=== PATIENT | male | born 1935 | race Caucasian/White ===

== ENCOUNTER 2016-05-07 17:08 | Inpatient (IN) | payer OTHER, MEDICARE ==
[~2016-05-07] VITALS: Ht 182.9 cm; Wt 76.1 kg
[2016-05-07 17:23] LABS: EOSINOPHIL (%) 3.9 % (0-5); EOSINOPHIL COUNT 0.2 K/uL (0-0.3); HEMATOCRIT 39.8 % (38.0-50.0); IMMATURE GRANULOCYTE COUNT 0.1 K/uL; INSTRUMENT ABS NEUTROPHIL CT 4.1 K/uL; LYMPHOCYTE COUNT 1.1 K/uL (1.0-2.8); MCH 30.9 PG (29.0-34.0); MCHC 32.4 G/DL (30.0-36.0); MCV 95.2 FL (86-99); MEAN PLAT.VOLUME 9.3 uM^3 (9.0-12.4); MONOCYTE (%) 10.5 % (3-12); MONOCYTE COUNT 0.6 K/uL (0-0.8); NEUTROPHIL (%) 66.7 % (45-76); NEUTROPHIL COUNT 4.1 K/uL (1.8-6.4); PLATELET COUNT 154 K/uL (156-360); RBC DIS.WIDTH-CV 13.1 % (11.8-14.6); RBC DIS.WIDTH-SD 45.4 % (39-53); RED BLOOD COUNT 4.18 M/uL (4.00-5.50); WHITE BLOOD COUNT 6.1 K/uL (4.1-10.2)
[2016-05-07 17:25] LABS: CREATININE 1.6 mg/dL (0.6-1.3); POTASSIUM 5.1 mEq/L (3.7-5.4)
[2016-05-07 17:31] LABS: AMYLASE 78 IU/L (1-118); CHLORIDE 103 mEq/L (99-109); POTASSIUM 5.4 mEq/L (3.7-5.4); SODIUM 139 mEq/L (136-147)
[2016-05-07 17:32] LABS: INTER. NORMALIZED RATIO 1.2
[2016-05-07 17:33] LABS: GLUCOSE 128 mg/dL (70-99)
[2016-05-07 17:34] LABS: ANION GAP 19 MEQ/L (2-14)
[2016-05-07 17:36] LABS: SERUM ETHYL ALCOHOL < 10 mg/dL
[2016-05-07 17:38] LABS: UREA NITROGEN (BUN) 26 mg/dL (9-23)
[2016-05-07 17:40] LABS: LIPASE 12 U/L (1.0-51.0)
[2016-05-07 17:44] LABS: TROP-I INTERPRETATION NEGATIVE; TROPONIN-I < 0.01 ng/mL (0.0-0.30)
[2016-05-07 17:46] LABS: GFR ESTIMATE (CALCULATED) 39 mL/min/
[2016-05-07 18:22] LABS: ADD MIUA? NO; BILIRUBIN NEGATIVE; BLOOD NEGATIVE; COLOR YELLOW ((YELLOW)); GLUCOSE (STRIP) NEGATIVE; KETONES NEGATIVE; LEUKOCYTES NEGATIVE; NITRITE NEGATIVE; PROTEIN (STRIP) NEGATIVE; SPECIFIC GRAVITY 1.011 (1.000-1.030); UCUL ADDED? NO
[2016-05-07 18:37] LABS: AMPHETAMINE NEGATIVE (500 ng/mL); BARBITURATES NEGATIVE (200 ng/mL); BENZODIAZEPINES NEGATIVE (150 ng/mL); COCAINE NEGATIVE (150 ng/mL); INTERNAL CONTROLS VALID? YES; METHADONE NEGATIVE (200 ng/mL); METHAMPHETAMINE NEGATIVE (500 ng/mL); OPIATES (MORPHINE) NEGATIVE (100 ng/mL); OXYCODONE NEGATIVE (100 ng/mL); PHENCYCLIDINE NEGATIVE (25 ng/mL); PROPOXYPHENE NEGATIVE (300 ng/mL); THC CANNABINOIDS NEGATIVE (50 ng/mL); TRICYCLIC ANTIDEPRESSANTS NEGATIVE (300 ng/mL)
[2016-05-07] MEDS ORDERED: LANTUS 10100 UNITS/ SC (20:26)
[2016-05-07] MEDS ORDERED: AMLODIPINE BESYL5 MG PO (20:27)
[2016-05-07] MEDS ORDERED: ALLOPURINOL100 MG PO (20:27)
[2016-05-07] MEDS ORDERED: LOSARTAN POTAS100 MG PO (20:27)
[2016-05-07] MEDS ORDERED: FUROSEMIDE20 MG PO (20:27)
[2016-05-07] MEDS ORDERED: ZOLOFT25 MG PO (20:28)
[2016-05-07] MEDS ORDERED: KLOR-CON 1010 ME1 PO (20:28)
[2016-05-07] MEDS ORDERED: SERTRALINE HCL50 MG PO (20:28)
[2016-05-07] MEDS ORDERED: AMANTADINE100 MG PO (20:29)
[2016-05-07] MEDS ORDERED: VITAMIN D31000 UNIT PO (20:29)
[2016-05-07] MEDS ORDERED: TAMSULOSIN HCL0.4 MG PO (20:29)
[2016-05-07] MEDS ORDERED: ATORVASTATIN CA10 MG PO (20:29)
[2016-05-07] MEDS ORDERED: MIRALAX255 GM PO (20:30)
[2016-05-07 23:30] VITALS: BP 145/76
[2016-05-07 23:42] LABS: POINT-OF-CARE METER ID UU14174216
[2016-05-08 00:18] VITALS: BP 142/76
[2016-05-08 05:00] VITALS: BP 150/70
[2016-05-08 07:03] LABS: HEMATOCRIT 33.4 % (38.0-50.0); MCHC 33.5 G/DL (30.0-36.0); MCV 92.5 FL (86-99); MEAN PLAT.VOLUME 9.7 uM^3 (9.0-12.4); PLATELET COUNT 125 K/uL (156-360); RBC DIS.WIDTH-SD 44.4 % (39-53); RED BLOOD COUNT 3.61 M/uL (4.00-5.50); WHITE BLOOD COUNT 4.8 K/uL (4.1-10.2)
[2016-05-08 07:42] VITALS: BP 163/73
[2016-05-08 08:13] LABS: ALKALINE PHOSPHATASE 103 IU/L (3-129); ANION GAP 7 MEQ/L (2-14); CHLORIDE 106 MEQ/L (99-109); SAMPLE HEMOLYSIS CHECK 0; SAMPLE ICTERIC CHECK 0; SAMPLE LIPEMIA CHECK 0; SODIUM 141 MEQ/L (136-147); TOTAL BILIRUBIN 1.4 MG/DL (0.0-1.0); UREA NITROGEN (BUN) 17 mg/dL (9-23)
[2016-05-08 08:16] LABS: GFR ESTIMATE (CALCULATED) > 59 mL/min/; GLUCOSE 77 mg/dL (70-99); POTASSIUM 3.6 MEQ/L (3.7-5.4)
[2016-05-08 12:51] VITALS: BP 184/78
[2016-05-08 20:27] VITALS: BP 176/81
[2016-05-08 23:13] LABS: POINT-OF-CARE METER ID UU14174216
[2016-05-09 00:21] VITALS: BP 154/70
[2016-05-09 05:15] VITALS: BP 161/72
[2016-05-09 06:12] LABS: POINT-OF-CARE METER ID UU13113781
[2016-05-09 06:56] LABS: EOSINOPHIL (%) 3.2 % (0-5); EOSINOPHIL COUNT 0.2 K/uL (0-0.3); HEMATOCRIT 38.4 % (38.0-50.0); IMMATURE GRANULOCYTE (%) 0.5 % (0.0-0.7); INSTRUMENT ABS NEUTROPHIL CT 4.4 K/uL; LYMPHOCYTE COUNT 0.7 K/uL (1.0-2.8); MCH 30.6 PG (29.0-34.0); MCHC 33.6 G/DL (30.0-36.0); MEAN PLAT.VOLUME 9.7 uM^3 (9.0-12.4); MONOCYTE (%) 9.1 % (3-12); MONOCYTE COUNT 0.5 K/uL (0-0.8); NEUTROPHIL (%) 74.7 % (45-76); NEUTROPHIL COUNT 4.4 K/uL (1.8-6.4); PLATELET COUNT 140 K/uL (156-360); RBC DIS.WIDTH-CV 12.8 % (11.8-14.6); RBC DIS.WIDTH-SD 42.6 % (39-53); RED BLOOD COUNT 4.22 M/uL (4.00-5.50); WHITE BLOOD COUNT 5.9 K/uL (4.1-10.2)
[2016-05-09 07:12] LABS: ANION GAP 10 MEQ/L (2-14); CHLORIDE 103 MEQ/L (99-109); GFR ESTIMATE (CALCULATED) > 59 mL/min/; GLUCOSE 77 mg/dL (70-99); SAMPLE HEMOLYSIS CHECK 0; SAMPLE ICTERIC CHECK 0; SAMPLE LIPEMIA CHECK 0; SODIUM 139 MEQ/L (136-147); UREA NITROGEN (BUN) 18 mg/dL (9-23)
[2016-05-09 08:15] VITALS: BP 184/84
[2016-05-09 12:45] VITALS: BP 148/67
[2016-05-09 16:09] LABS: POINT-OF-CARE METER ID UU13113781
[2016-05-09 16:25] VITALS: BP 144/67
[2016-05-09 19:50] VITALS: BP 166/86
[2016-05-09 21:15] LABS: POINT-OF-CARE METER ID UU13113781
[2016-05-10 00:07] VITALS: BP 120/57
[2016-05-10 04:30] VITALS: BP 136/85
[2016-05-10 05:54] LABS: EOSINOPHIL (%) 3.6 % (0-5); EOSINOPHIL COUNT 0.2 K/uL (0-0.3); HEMATOCRIT 36.2 % (38.0-50.0); IMMATURE GRANULOCYTE (%) 0.4 % (0.0-0.7); INSTRUMENT ABS NEUTROPHIL CT 3.8 K/uL; LYMPHOCYTE COUNT 0.7 K/uL (1.0-2.8); MCH 30.6 PG (29.0-34.0); MEAN PLAT.VOLUME 9.6 uM^3 (9.0-12.4); MONOCYTE COUNT 0.6 K/uL (0-0.8); NEUTROPHIL COUNT 3.8 K/uL (1.8-6.4); PLATELET COUNT 129 K/uL (156-360); RBC DIS.WIDTH-CV 12.8 % (11.8-14.6); RBC DIS.WIDTH-SD 42.5 % (39-53); RED BLOOD COUNT 4.02 M/uL (4.00-5.50); WHITE BLOOD COUNT 5.4 K/uL (4.1-10.2)
[2016-05-10 06:43] LABS: ANION GAP 11 MEQ/L (2-14); CHLORIDE 101 MEQ/L (99-109); GFR ESTIMATE (CALCULATED) > 59 mL/min/; SAMPLE HEMOLYSIS CHECK 0; SAMPLE ICTERIC CHECK 0; SAMPLE LIPEMIA CHECK 0; SODIUM 137 MEQ/L (136-147); UREA NITROGEN (BUN) 21 mg/dL (9-23)
[2016-05-10 06:48] LABS: GLUCOSE 107 mg/dL (70-99)
[2016-05-10 07:27] LABS: POINT-OF-CARE METER ID UU13113781
[2016-05-10 11:20] VITALS: BP 148/67
[2016-05-10 11:21] LABS: POINT-OF-CARE METER ID UU13113781
[2016-05-10 20:09] VITALS: BP 115/58
[2016-05-10 20:41] LABS: POINT-OF-CARE METER ID UU13113781
[2016-05-10 23:53] VITALS: BP 135/65
[2016-05-11] VITALS (7 sets, daily range): BP systolic 134–171; BP diastolic 65–83
[2016-05-11 06:24] LABS: MCH 31.1 PG (29.0-34.0); MCHC 34.5 G/DL (30.0-36.0); MCV 90.2 FL (86-99); MEAN PLAT.VOLUME 9.5 uM^3 (9.0-12.4); PLATELET COUNT 125 K/uL (156-360); RBC DIS.WIDTH-CV 12.7 % (11.8-14.6); RED BLOOD COUNT 3.66 M/uL (4.00-5.50); WHITE BLOOD COUNT 4.9 K/uL (4.1-10.2)
[2016-05-11 06:46] LABS: ANION GAP 9 MEQ/L (2-14); CHLORIDE 107 MEQ/L (99-109); GFR ESTIMATE (CALCULATED) > 59 mL/min/; GLUCOSE 112 mg/dL (70-99); POTASSIUM 4.1 MEQ/L (3.7-5.4); SAMPLE HEMOLYSIS CHECK 0; SAMPLE ICTERIC CHECK 0; SAMPLE LIPEMIA CHECK 0; SODIUM 141 MEQ/L (136-147); UREA NITROGEN (BUN) 21 mg/dL (9-23)
[2016-05-11 07:17] LABS: POINT-OF-CARE METER ID UU13113781
[2016-05-12 04:08] VITALS: BP 132/64
[2016-05-12 06:04] LABS: HEMATOCRIT 35.7 % (38.0-50.0); MCH 30.5 PG (29.0-34.0); MCHC 33.6 G/DL (30.0-36.0); MCV 90.6 FL (86-99); MEAN PLAT.VOLUME 9.7 uM^3 (9.0-12.4); PLATELET COUNT 131 K/uL (156-360); RBC DIS.WIDTH-CV 12.7 % (11.8-14.6); RBC DIS.WIDTH-SD 42.3 % (39-53); RED BLOOD COUNT 3.94 M/uL (4.00-5.50); WHITE BLOOD COUNT 4.7 K/uL (4.1-10.2)
[2016-05-12 06:23] LABS: ANION GAP 11 MEQ/L (2-14); CHLORIDE 107 MEQ/L (99-109); GFR ESTIMATE (CALCULATED) > 59 mL/min/; GLUCOSE 107 mg/dL (70-99); POTASSIUM 3.8 MEQ/L (3.7-5.4); SAMPLE HEMOLYSIS CHECK 0; SAMPLE ICTERIC CHECK 0; SAMPLE LIPEMIA CHECK 0; SODIUM 144 MEQ/L (136-147); UREA NITROGEN (BUN) 22 mg/dL (9-23)
[2016-05-12 07:53] VITALS: BP 139/67
[2016-05-12 12:03] VITALS: BP 142/88
[2016-05-12 17:00] VITALS: BP 148/83
[2016-05-12 20:10] VITALS: BP 143/78
[2016-05-13 00:18] VITALS: BP 135/75
[2016-05-13 04:22] VITALS: BP 151/81
[2016-05-13 05:52] LABS: HEMATOCRIT 38.5 % (38.0-50.0); MCH 30.2 PG (29.0-34.0); MCHC 33.8 G/DL (30.0-36.0); MCV 89.5 FL (86-99); MEAN PLAT.VOLUME 9.7 uM^3 (9.0-12.4); PLATELET COUNT 142 K/uL (156-360); RBC DIS.WIDTH-CV 12.6 % (11.8-14.6); RBC DIS.WIDTH-SD 41.2 % (39-53)
[2016-05-13 05:53] LABS: WHITE BLOOD COUNT 6.4 K/uL (4.1-10.2)
[2016-05-13 05:59] LABS: ANION GAP 11 MEQ/L (2-14); CHLORIDE 105 MEQ/L (99-109); GFR ESTIMATE (CALCULATED) > 59 mL/min/; GLUCOSE 124 mg/dL (70-99); POTASSIUM 4.1 MEQ/L (3.7-5.4); SAMPLE HEMOLYSIS CHECK 0; SAMPLE ICTERIC CHECK 0; SAMPLE LIPEMIA CHECK 0; SODIUM 142 MEQ/L (136-147); UREA NITROGEN (BUN) 20 mg/dL (9-23)
[2016-05-13 08:38] VITALS: BP 132/69
[2016-05-13 12:01] VITALS: BP 107/57
[2016-05-13 16:06] VITALS: BP 133/56
[2016-05-13 17:37] LABS: POINT-OF-CARE METER ID UU14149397
[2016-05-13 19:52] VITALS: BP 150/72
[2016-05-13 22:10] LABS: POINT-OF-CARE METER ID UU14149397
[2016-05-14 00:14] VITALS: BP 137/91
[2016-05-14 04:28] VITALS: BP 144/63
[2016-05-14 05:18] LABS: HEMATOCRIT 34.6 % (38.0-50.0); MCH 30.8 PG (29.0-34.0); MCHC 34.7 G/DL (30.0-36.0); MCV 88.7 FL (86-99); MEAN PLAT.VOLUME 9.7 uM^3 (9.0-12.4); PLATELET COUNT 144 K/uL (156-360); RBC DIS.WIDTH-CV 12.6 % (11.8-14.6); RBC DIS.WIDTH-SD 41.1 % (39-53)
[2016-05-14 05:40] LABS: ANION GAP 11 MEQ/L (2-14); CHLORIDE 110 MEQ/L (99-109); GFR ESTIMATE (CALCULATED) 56 mL/min/; GLUCOSE 120 mg/dL (70-99); SAMPLE HEMOLYSIS CHECK 0; SAMPLE ICTERIC CHECK 0; SAMPLE LIPEMIA CHECK 0; SODIUM 145 MEQ/L (136-147); UREA NITROGEN (BUN) 22 mg/dL (9-23)
[2016-05-14 07:50] VITALS: BP 124/58
[2016-05-14 15:02] VITALS: BP 175/92
[2016-05-14 16:24] LABS: POINT-OF-CARE METER ID UU14188577
[2016-05-14 22:45] VITALS: BP 162/84
[2016-05-15 05:32] LABS: HEMATOCRIT 35.8 % (38.0-50.0); MCH 30.8 PG (29.0-34.0); MCHC 34.4 G/DL (30.0-36.0); MCV 89.5 FL (86-99); MEAN PLAT.VOLUME 9.5 uM^3 (9.0-12.4); PLATELET COUNT 132 K/uL (156-360); RBC DIS.WIDTH-CV 12.6 % (11.8-14.6); RBC DIS.WIDTH-SD 41.4 % (39-53); WHITE BLOOD COUNT 6.1 K/uL (4.1-10.2)
[2016-05-15 05:58] LABS: ANION GAP 11 MEQ/L (2-14); CHLORIDE 110 MEQ/L (99-109); GFR ESTIMATE (CALCULATED) > 59 mL/min/; GLUCOSE 110 mg/dL (70-99); POTASSIUM 4.1 MEQ/L (3.7-5.4); SAMPLE HEMOLYSIS CHECK 0; SAMPLE ICTERIC CHECK 0; SAMPLE LIPEMIA CHECK 0; SODIUM 144 MEQ/L (136-147); UREA NITROGEN (BUN) 18 mg/dL (9-23)
[2016-05-15 08:04] VITALS: BP 137/60
[2016-05-15 11:21] LABS: POINT-OF-CARE METER ID UU14149397
[2016-05-15 15:50] VITALS: BP 172/79
[2016-05-15 16:36] LABS: POINT-OF-CARE METER ID UU14188577
[2016-05-15 20:25] VITALS: BP 178/88
[2016-05-15 21:56] LABS: POINT-OF-CARE METER ID UU14188577
[2016-05-15 23:26] VITALS: BP 180/80
[2016-05-16 04:10] VITALS: BP 160/73
[2016-05-16 06:12] LABS: HEMATOCRIT 39.2 % (38.0-50.0); MCH 30.2 PG (29.0-34.0); MCHC 33.7 G/DL (30.0-36.0); MCV 89.7 FL (86-99); MEAN PLAT.VOLUME 9.7 uM^3 (9.0-12.4); PLATELET COUNT 159 K/uL (156-360); RBC DIS.WIDTH-CV 12.7 % (11.8-14.6); RBC DIS.WIDTH-SD 42.1 % (39-53); RED BLOOD COUNT 4.37 M/uL (4.00-5.50); WHITE BLOOD COUNT 7.7 K/uL (4.1-10.2)
[2016-05-16 06:44] LABS: ANION GAP 12 MEQ/L (2-14); CHLORIDE 111 MEQ/L (99-109); GFR ESTIMATE (CALCULATED) > 59 mL/min/; GLUCOSE 85 mg/dL (70-99); SAMPLE HEMOLYSIS CHECK 0; SAMPLE ICTERIC CHECK 0; SAMPLE LIPEMIA CHECK 0; SODIUM 149 MEQ/L (136-147); UREA NITROGEN (BUN) 24 mg/dL (9-23)
[2016-05-16 06:46] LABS: POTASSIUM 5.1 MEQ/L (3.7-5.4)
[2016-05-16 08:19] VITALS: BP 169/79
[2016-05-16 12:02] LABS: POINT-OF-CARE METER ID UU14188577
[2016-05-16 12:24] VITALS: BP 146/95
[2016-05-16 16:19] VITALS: BP 125/59
[2016-05-16 17:04] LABS: POINT-OF-CARE METER ID UU14188577
[2016-05-16 22:17] VITALS: BP 122/61
[2016-05-17 01:01] VITALS: BP 142/79
[2016-05-17 04:40] VITALS: BP 146/63
[2016-05-17 05:43] LABS: HEMATOCRIT 35.3 % (38.0-50.0); MCH 30.2 PG (29.0-34.0); MCHC 34.3 G/DL (30.0-36.0); MEAN PLAT.VOLUME 9.7 uM^3 (9.0-12.4); PLATELET COUNT 127 K/uL (156-360); RBC DIS.WIDTH-CV 12.5 % (11.8-14.6); RBC DIS.WIDTH-SD 40.1 % (39-53); RED BLOOD COUNT 4.01 M/uL (4.00-5.50); WHITE BLOOD COUNT 5.4 K/uL (4.1-10.2)
[2016-05-17 06:05] LABS: ANION GAP 10 MEQ/L (2-14); CHLORIDE 110 MEQ/L (99-109); GFR ESTIMATE (CALCULATED) > 59 mL/min/; GLUCOSE 126 mg/dL (70-99); POTASSIUM 3.3 MEQ/L (3.7-5.4); SAMPLE HEMOLYSIS CHECK 0; SAMPLE ICTERIC CHECK 0; SAMPLE LIPEMIA CHECK 0; SODIUM 143 MEQ/L (136-147); UREA NITROGEN (BUN) 22 mg/dL (9-23)
[2016-05-17 11:46] LABS: POINT-OF-CARE METER ID UU14188577
[2016-05-17 13:09] VITALS: BP 160/78
[2016-05-17 16:30] VITALS: BP 132/62
[2016-05-17 16:45] VITALS: BP 186/86
[2016-05-17 17:15] LABS: POINT-OF-CARE METER ID UU14188577
[2016-05-17 22:15] LABS: POINT-OF-CARE METER ID UU14188577
[2016-05-18] VITALS (8 sets, daily range): BP systolic 106–171; BP diastolic 57–76
[2016-05-18 07:09] LABS: POINT-OF-CARE METER ID UU14188577
[2016-05-18 21:47] LABS: POINT-OF-CARE METER ID UU14188577
[2016-05-19 03:55] VITALS: BP 113/59
[2016-05-19 08:34] VITALS: BP 97/50
[2016-05-19 08:40] VITALS: BP 118/60
[2016-05-19 12:11] VITALS: BP 115/53
[2016-05-19 16:18] VITALS: BP 137/63
[2016-05-20 04:02] VITALS: BP 158/70
[2016-05-20 07:49] VITALS: BP 99/53
[2016-05-20 08:58] LABS: HEMATOCRIT 32.2 % (38.0-50.0); MCH 30.5 PG (29.0-34.0); MCHC 35.1 G/DL (30.0-36.0); MEAN PLAT.VOLUME 10.1 uM^3 (9.0-12.4); PLATELET COUNT 108 K/uL (156-360); RBC DIS.WIDTH-CV 12.7 % (11.8-14.6); RBC DIS.WIDTH-SD 40.1 % (39-53); WHITE BLOOD COUNT 5.6 K/uL (4.1-10.2)
[2016-05-20 09:36] LABS: ANION GAP 10 MEQ/L (2-14); CHLORIDE 107 MEQ/L (99-109); GFR ESTIMATE (CALCULATED) > 59 mL/min/; GLUCOSE 161 mg/dL (70-99); POTASSIUM 3.1 MEQ/L (3.7-5.4); SAMPLE HEMOLYSIS CHECK 0; SAMPLE ICTERIC CHECK 0; SAMPLE LIPEMIA CHECK 0; SODIUM 140 MEQ/L (136-147); UREA NITROGEN (BUN) 19 mg/dL (9-23)
[2016-05-20 10:41] VITALS: BP 119/58
[2016-05-20 11:11] LABS: MAGNESIUM 1.7 mg/dl (1.3-2.7)
[2016-05-20 14:52] VITALS: BP 196/84
[2016-05-20 16:06] LABS: POINT-OF-CARE METER ID UU14188577
[2016-05-20 20:00] VITALS: BP 129/60
[2016-05-21 00:13] VITALS: BP 117/56
[2016-05-21 04:02] VITALS: BP 129/60
[2016-05-21 05:53] LABS: POINT-OF-CARE METER ID UU14188577
[2016-05-21 08:50] VITALS: BP 162/67
[2016-05-21 08:56] LABS: ANION GAP 7 MEQ/L (2-14); CHLORIDE 107 MEQ/L (99-109); GFR ESTIMATE (CALCULATED) > 59 mL/min/; GLUCOSE 171 mg/dL (70-99); POTASSIUM 3.5 MEQ/L (3.7-5.4); SAMPLE HEMOLYSIS CHECK 0; SAMPLE ICTERIC CHECK 0; SAMPLE LIPEMIA CHECK 0; SODIUM 139 MEQ/L (136-147); UREA NITROGEN (BUN) 18 mg/dL (9-23)
[2016-05-21 12:27] LABS: POINT-OF-CARE METER ID UU14149397
[2016-05-21 12:30] VITALS: BP 136/64
[2016-05-21 16:25] VITALS: BP 153/66
[2016-05-21 17:18] LABS: POINT-OF-CARE METER ID UU14149397
[2016-05-21 20:12] VITALS: BP 139/62
[2016-05-22 05:48] LABS: MCH 30.7 PG (29.0-34.0); MCHC 34.6 G/DL (30.0-36.0); MCV 88.7 FL (86-99); PLATELET COUNT 103 K/uL (156-360); RBC DIS.WIDTH-CV 13.1 % (11.8-14.6); RBC DIS.WIDTH-SD 42.1 % (39-53); RED BLOOD COUNT 4.17 M/uL (4.00-5.50); WHITE BLOOD COUNT 9.4 K/uL (4.1-10.2)
[2016-05-22 06:21] LABS: ANION GAP 10 MEQ/L (2-14); CHLORIDE 106 MEQ/L (99-109); GFR ESTIMATE (CALCULATED) > 59 mL/min/; GLUCOSE 150 mg/dL (70-99); POTASSIUM 3.7 MEQ/L (3.7-5.4); SAMPLE HEMOLYSIS CHECK 0; SAMPLE ICTERIC CHECK 0; SAMPLE LIPEMIA CHECK 0; SODIUM 140 MEQ/L (136-147); UREA NITROGEN (BUN) 18 mg/dL (9-23)
[2016-05-22 08:38] VITALS: BP 151/71
[2016-05-22 15:53] VITALS: BP 131/62
[2016-05-22 19:26] VITALS: BP 148/63
[2016-05-22 23:17] VITALS: BP 164/68
[2016-05-23 05:52] LABS: ANION GAP 7 MEQ/L (2-14); CHLORIDE 107 MEQ/L (99-109); GFR ESTIMATE (CALCULATED) > 59 mL/min/; GLUCOSE 168 mg/dL (70-99); POTASSIUM 3.4 MEQ/L (3.7-5.4); SAMPLE HEMOLYSIS CHECK 0; SAMPLE ICTERIC CHECK 0; SAMPLE LIPEMIA CHECK 0; SODIUM 141 MEQ/L (136-147); UREA NITROGEN (BUN) 21 mg/dL (9-23)
[2016-05-23 06:34] LABS: HEMATOCRIT 28.9 % (38.0-50.0); MCH 30.7 PG (29.0-34.0); MCHC 34.6 G/DL (30.0-36.0); MCV 88.7 FL (86-99); MEAN PLAT.VOLUME 10.2 uM^3 (9.0-12.4); PLATELET COUNT 90 K/uL (156-360); RBC DIS.WIDTH-SD 42.5 % (39-53)
[2016-05-23 06:43] LABS: POINT-OF-CARE METER ID UU14188577
[2016-05-23 07:07] LABS: RED BLOOD COUNT 3.26 M/uL (4.00-5.50); WHITE BLOOD COUNT 6.3 K/uL (4.1-10.2)
[2016-05-23 07:47] VITALS: BP 141/60
[2016-05-23 15:05] VITALS: BP 131/60
[2016-05-24 00:03] VITALS: BP 149/67
[2016-05-24 05:56] LABS: HEMATOCRIT 32.1 % (38.0-50.0); MCH 30.6 PG (29.0-34.0); MCHC 34.3 G/DL (30.0-36.0); MCV 89.2 FL (86-99); PLATELET COUNT 116 K/uL (156-360); RBC DIS.WIDTH-CV 12.9 % (11.8-14.6); RBC DIS.WIDTH-SD 42.5 % (39-53)
[2016-05-24 05:58] LABS: WHITE BLOOD COUNT 4.4 K/uL (4.1-10.2)
[2016-05-24 06:14] LABS: INTER. NORMALIZED RATIO 1.2; PTT 32.5 (25-32)
[2016-05-24 06:22] LABS: ALKALINE PHOSPHATASE 75 IU/L (3-129); ANION GAP 6 MEQ/L (2-14); CHLORIDE 104 MEQ/L (99-109); GFR ESTIMATE (CALCULATED) > 59 mL/min/; SAMPLE HEMOLYSIS CHECK 0; SAMPLE ICTERIC CHECK 0; SAMPLE LIPEMIA CHECK 0; SODIUM 140 MEQ/L (136-147); TOTAL BILIRUBIN 0.7 MG/DL (0.0-1.0); UREA NITROGEN (BUN) 20 mg/dL (9-23)
[2016-05-24 06:23] LABS: GLUCOSE 110 mg/dL (70-99); POTASSIUM 4.6 MEQ/L (3.7-5.4)
[2016-05-24 06:24] LABS: POINT-OF-CARE METER ID UU14149397
[2016-05-24 07:00] VITALS: BP 131/88
[2016-05-24 10:39] VITALS: BP 129/60
[2016-05-24 11:58] LABS: POINT-OF-CARE METER ID UU14188577
[2016-05-24 13:27] VITALS: BP 160/82
[2016-05-24 22:06] LABS: POINT-OF-CARE METER ID UU14149397
[2016-05-24 23:30] VITALS: BP 144/88
[2016-05-25 06:39] LABS: POINT-OF-CARE METER ID UU14149397
[2016-05-25 08:28] VITALS: BP 161/70
[2016-05-25 11:01] LABS: POINT-OF-CARE METER ID UU14149397
[2016-05-25 16:14] VITALS: BP 160/70
[2016-05-25 21:24] LABS: POINT-OF-CARE METER ID UU14188577
[2016-05-25 23:21] VITALS: BP 113/55
[2016-05-26 05:33] LABS: ANION GAP 6 MEQ/L (2-14); CHLORIDE 103 MEQ/L (99-109); GFR ESTIMATE (CALCULATED) > 59 mL/min/; GLUCOSE 129 mg/dL (70-99); SAMPLE HEMOLYSIS CHECK 0; SAMPLE ICTERIC CHECK 0; SAMPLE LIPEMIA CHECK 0; SODIUM 137 MEQ/L (136-147); UREA NITROGEN (BUN) 20 mg/dL (9-23)
[2016-05-26 05:34] LABS: POTASSIUM 3.6 MEQ/L (3.7-5.4)
[2016-05-26 06:16] LABS: POINT-OF-CARE METER ID UU14188577
[2016-05-26 06:27] LABS: HEMATOCRIT 25.8 % (38.0-50.0); MCH 30.8 PG (29.0-34.0); MCHC 34.5 G/DL (30.0-36.0); MCV 89.3 FL (86-99); MEAN PLAT.VOLUME 9.5 uM^3 (9.0-12.4); PLATELET COUNT 122 K/uL (156-360); RBC DIS.WIDTH-SD 42.5 % (39-53); RED BLOOD COUNT 2.89 M/uL (4.00-5.50); WHITE BLOOD COUNT 4.5 K/uL (4.1-10.2)
[2016-05-26 08:18] VITALS: BP 126/58
[2016-05-26 11:28] VITALS: BP 98/40
[2016-05-26 16:35] VITALS: BP 151/67
[2016-05-26 18:05] LABS: POINT-OF-CARE METER ID UU14188577
[2016-05-26 19:49] VITALS: BP 114/57
[2016-05-27 00:35] VITALS: BP 116/56
[2016-05-27 04:49] VITALS: BP 126/61
[2016-05-27 05:16] LABS: HEMATOCRIT 25.9 % (38.0-50.0); MCH 30.3 PG (29.0-34.0); MCHC 33.6 G/DL (30.0-36.0); MCV 90.2 FL (86-99); MEAN PLAT.VOLUME 9.6 uM^3 (9.0-12.4); PLATELET COUNT 118 K/uL (156-360); RBC DIS.WIDTH-CV 13.2 % (11.8-14.6); RBC DIS.WIDTH-SD 43.2 % (39-53); RED BLOOD COUNT 2.87 M/uL (4.00-5.50)
[2016-05-27 05:43] LABS: ANION GAP 7 MEQ/L (2-14); CHLORIDE 105 MEQ/L (99-109); GFR ESTIMATE (CALCULATED) > 59 mL/min/; GLUCOSE 145 mg/dL (70-99); POTASSIUM 4.1 MEQ/L (3.7-5.4); SAMPLE HEMOLYSIS CHECK 0; SAMPLE ICTERIC CHECK 0; SAMPLE LIPEMIA CHECK 0; SODIUM 139 MEQ/L (136-147); UREA NITROGEN (BUN) 26 mg/dL (9-23)
[2016-05-27 07:07] LABS: POINT-OF-CARE METER ID UU14188577
[2016-05-27 07:51] VITALS: BP 108/38
[2016-05-27 10:54] LABS: IRON 37 MCG/DL (35-150)
[2016-05-27] MEDS ORDERED: SEROQUEL12.5 MG PO (10:59)
[2016-05-27] MEDS ORDERED: CARBIDOPA/LEVO1 EACH PO (10:59)
[2016-05-27] MEDS ORDERED: DEPAKOTE500 MG PO (10:59)
[2016-05-27 11:24] VITALS: BP 120/50
[2016-05-27 11:40] LABS: FERRITIN 501 NG/ML (22-322)
== END 2016-05-27 14:04 | DRG 85 ==
LOC: EME 17:08 → EDBD 17:08 → 3EAST 21:14 → EDOF 21:14 → 4EAST 21:14 → 3EAST 05-11 20:41
PROVIDERS: Emergency Medicine; Hospitalist; Internal Medicine; Nurse Practitioner Family; Physician Assistant; Student in an Organized Health Care Education/Training Program
PROC: 0DH63UZ Insertion of Feeding Device into Stomach, Percutaneous Approach (ICD-10-PCS; principal; 2016-05-24)
DX: S06.5X0A Traumatic subdural hemorrhage without loss of consciousness, initial encounter (principal); S06.5X0D Traumatic subdural hemorrhage without loss of consciousness, subsequent encounter; G40.409 Other generalized epilepsy and epileptic syndromes, not intractable, without status epilepticus; R29.6 Repeated falls; E11.59 Type 2 diabetes mellitus with other circulatory complications; E87.6 Hypokalemia; I10 Essential (primary) hypertension; G31.83 Neurocognitive disorder with Lewy bodies; F02.80 Dementia in other diseases classified elsewhere, unspecified severity, without behavioral disturbance, psychotic disturbance, mood disturbance, and anxiety; N40.0 Benign prostatic hyperplasia without lower urinary tract symptoms; G93.41 Metabolic encephalopathy; F02.81 Dementia in other diseases classified elsewhere, unspecified severity, with behavioral disturbance; E11.9 Type 2 diabetes mellitus without complications; R13.10 Dysphagia, unspecified; Z79.4 Long term (current) use of insulin; R62.7 Adult failure to thrive; D69.6 Thrombocytopenia, unspecified; R47.1 Dysarthria and anarthria; F05 Delirium due to known physiological condition; E78.2 Mixed hyperlipidemia; M10.10 Lead-induced gout, unspecified site; Z68.23 Body mass index [BMI] 23.0-23.9, adult; W19.XXXA Unspecified fall, initial encounter; W19.XXXD Unspecified fall, subsequent encounter; E11.65 Type 2 diabetes mellitus with hyperglycemia; Z66 Do not resuscitate
CPT/HCPCS: 70450; 71010; 80047; 80048; 80053; 81003; 82150; 82728; 82948; 83540; 83605; 83690; 83735; 84466; 84484; 85025; 85027; 85610; 85730; 86850; 86900; 86901; 87040; 92526 GN; 92610 GN; 93005; 95819; 97530 GP; 99281; 99285; G0480; J0360; J0690; J1630; J1815; J1953; J2060; J3480; J7030; J7050; J7070; S0028